=== PATIENT | male | born 1955 | race Caucasian/White ===

== ENCOUNTER 2024-04-15 05:58 | Day surgery (SDC) | payer OTHER, MEDICARE, SELFPAY ==
[2024-04-15] VITALS (13 sets, daily range): BP systolic 109–147; BP diastolic 62–86; BMI 34.9
--- NOTE | 2024-04-15 09:55 | ITS.CL.ABL ---
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
Ablation
Procedure Report:
Supra-Ventricular Tachycardia Ablation:
Mr. Dodson is a very pleasant�68 yr old gentleman with medical history significant for palpitations and was diagnosed with supra-ventricular tachycardia (SVT) with EKG showed short RP tachycardia. He presented today to the EP lab for
electrophysiology (EP) study of the heart and possible ablation of the SVT.
Date of Procedure:
04/15/2024
�
Indications: Supra-Ventricular Tachycardia (SVT)
�
Pre-Operative Diagnosis: Supra-Ventricular Tachycardia (SVT)
�
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
�
Procedure Performed: EP study and SVT ablation
�
Performing Physician:
Kavon Paris MD
��
Anesthesia:
See anesthesia records
�
Detailed Description of the Procedure:
Written informed consent was obtained from the patient after a full explanation of the risks and benefits of the procedure including the risks of sedation and anesthesia. The patient was brought to the electrophysiology laboratory in stable
condition in fasting state. Continuous electrocardiographic and hemodynamic monitoring was initiated.
The initial rhythm was normal sinus.
The procedure site was meticulously prepared with surgical scrub and allowed to dry with no pooling. Sterile draping was applied to cover the procedure site. The image intensifier was draped with sterile bag and positioned over the patient.
Sheath and Catheter Placement:
After infusion of local anesthetic, vascular access was obtained under ultrasound guidance and sheaths were placed over guide wire as detailed below.
�
Sheaths:
- � � � 6 Fr sheath in right femoral vein
- � � � 7 Fr sheath in right femoral vein
- � � � 8 Fr that was later upgraded to Agilis sheath in right femoral vein
�
Catheters:
- � � � 6Fr - Rk Quad-cath at RVa
- � � � 6Fr � QRD Quad - cath at HIS
- � � � Bard Decapolar catheter - at locations of CS
- � � � [employer] Lucas EZ steer non-irrigated 4 mm ablation catheter
�
�Following the sheaths placement, patient was given Heparin bolus and EP study was done.
Baseline intervals (milliseconds):
PP interval (baseline cycle length): 1191
P wave duration:126
DE interval:188
QRS duration: 111
QTc interval: 430
�
AH interval: 113
His duration: 18
HV interval: 47
Q onset to RVa: 0
��
Sinus Node Function:
HRA pacing showed adequate threshold. The sinus node functions are within acceptable normal range.
�
Atrioventricular Carlos A Function:
Atrial stimulation with incremental pacing intervals was performed from the high right atrium (HRA) and right ventricular apex (RVa) and antegrade and retrograde atrioventricular (AV) block cycle lengths were determined. The antegrade AV Wenckebach
was noted at 550 msec.
�
Programmed atrial stimulation was performed with drive train of 600 msec followed by a single atrial extra-stimulus and the AV carlos a and the atrial ERPs were determined. The AV carlos a ERP was <600/320 msec and the atrial ERP was 320msec.
There was normal decremental conduction noted through the AV node. The programmed stimuli showed a clear AH jump.
The fast pathway ERP was 600/350 ms and the slow pathway ERP was <600/320 ms.
Ventricular stimulation showed normal retrograde conduction via the AV node. The retrograde Wenckebach was 460msec.
�
Ventricular Function:
Single ventricular extrastimuli showed V conduction was normal with below 500 msec ventricular conduction. The ventricular electrical functions are within acceptable range.
Para-Hisian Pacing:
The HIS cahether were paced at high amplitude (20mA) and gradually amplitude decreased. The His capture was noted at high voltage and the VA conduction time was 110 msec. The lower voltage had RV capture and the VA time was 197 msec. This is deemed
carlos a response and no septal accessory pathway was noted.
�
Isuprel stimulation test:
With slow atrial conduction and delayed intervals noted, decision was made to use the Isuprel challenge. Isuprel infusion was initiated. The heart rate and blood pressure was monitored. Isuprel was gradually increased from 1 to 5 mcg/min. There was
adequate tachycardia response noted at 5 mcg/min dose and EP study and SVT induction was again attempted. Programmed atrial stimulation followed by atrial burst pacing around AV Wenckebach cycle length induced tachycardia. Isuprel was discontinued.
SVT Arrhythmia Induction:
The tachycardia was easily inducible with atrial spetal pacing at 350 msec.
Tachycardia:
The tachycardia was studies with a cycle length of 340 msec and easily inducible. The tachycardia was concentric and had short VA time. This was consistent with AVNRT.
The tachycardia was entrained from the ventricle and the proximal CS. The ventricle was out of the tachycardia cycle and attempt from the entrainment from CS maneuver terminated the tachycardia. The tachycardia was difficult to entrain as it
terminated with entrainment. It dissociated from the ventricle and the atrium with A and V pacing but was not entrained due to termination.
Decision was made to map the tachycardia to assess the circuit. The earliest tachycardia signal in the atrium was at the fast pathway again adding evidence to the AVNRT. ��
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
Electroanatomic 3D Mapping (EAM) and Ablation:
The HRA was removed and was upgraded to Agilis sheath for ablation catheter. EAM and radiofrequency ablation was performed using a non-irrigation, EZ steer 4 mm radiofrequency ablation catheter. 3D mapping was performed with Carto3 software. Cardiac
anatomy as established. His cloud was established. The triangle of Zhang was marked with ablation catheter. There was a narrow area between the anterior border of the CS and the tricuspid annulus.
A slow pathway AVNRT ablation was pursued. Radiofrequency ablation lesions were applied to the anatomic slow pathway area targeting spike and dome electrograms with > 1:7 A:V ratio just below the His cloud. There were multitude of Junctional beats
with 1:1 VA relationship noted. There was no non-conducted beat.
Post Ablation EP study:
The post ablation EP study showed normal AV conduction. The DE was 188msec; QRS was 112msec; AH was 118msec with HV of 45msec. There was no sign of AV block noted.
There was decremental conduction noted via the AV node. There was no jump present now after the ablation. There was no echo beats and despite aggressive measures there was no inducible tachycardia.
Isuprel was again started and uptitrated to 5 mcg and repeated the EP study. The easily inducing setting (burst pacing 350 ms from prox CS) was again attempted multiple times without any arrhythmia.
No tachycardia was inducible now.
Procedure End
Following the completion of the EP study, catheters were removed. The sheaths were removed and hemostasis achieved with Figure of 8 and manual compression.
Recommendations:
��������� Likely discharge home today.
��������� No change in home medications.
�
Estimated Blood loss:
<5 cc
�
Specimens Removed:
None.
�
Implants / Devices:
None
�
Urine output:
None
�
Packs / Drains/ Tubes:
None
�
Instrument / Sponge Count Correct:
Yes
�
Complications of the Procedure:
None
�
Condition of Patient at Time of Transfer:
Hemodynamically stable with no neurological or vascular compromise.
Summary:
Electrophysiology study with induction of atrioventricular carlos a re-entrant tachycardia (AVNRT) and successful modification of slow pathway.
== END 2024-04-15 14:30 | disposition home or self-care (01) ==
LOC: CATH 05:58
PROVIDERS: ATTENDING PHYSICIAN Internal Medicine Cardiovascular Disease; FAMILY PHYSICIAN Physician Assistant Medical; OTHER PHYSICIAN Internal Medicine Cardiovascular Disease
DX: I47.10 Supraventricular tachycardia, unspecified (principal); I10 Essential (primary) hypertension; K21.9 Gastro-esophageal reflux disease without esophagitis
CPT/HCPCS: C1732; C1894; C1730; C1766; 76937; 93005; 93623; 93653

== ENCOUNTER → 2024-06-27 14:01 | Outpatient (REF) | payer MEDICARE, SELFPAY | LOC: RAD 14:01 | PROVIDERS: ATTENDING PHYSICIAN Family Medicine; FAMILY PHYSICIAN Physician Assistant Medical | DX: R10.31 Right lower quadrant pain (principal); R19.4 Change in bowel habit | CPT/HCPCS: 74177; Q9967 ==

== ENCOUNTER → 2024-11-11 10:59 | Outpatient (REF) | payer MEDICARE, SELFPAY | LOC: RAD 10:59 | PROVIDERS: ATTENDING PHYSICIAN Family Medicine | DX: M25.511 Pain in right shoulder (principal); M25.552 Pain in left hip | CPT/HCPCS: 73030; 73502 ==

== ENCOUNTER → 2024-12-05 10:45 | Outpatient (REF) | payer MEDICARE, SELFPAY | LOC: RAD 10:45 | PROVIDERS: ATTENDING PHYSICIAN Nurse Practitioner Family; FAMILY PHYSICIAN Nurse Practitioner Family | DX: M25.432 Effusion, left wrist (principal); R07.81 Pleurodynia | CPT/HCPCS: 71101; 73110; 73130 ==

== ENCOUNTER → 2025-01-16 06:43 | Outpatient (REF) | payer MEDICARE, SELFPAY | LOC: PAVMRI 06:43 | PROVIDERS: ATTENDING PHYSICIAN Orthopaedic Surgery; FAMILY PHYSICIAN Family Medicine | DX: M25.532 Pain in left wrist (principal) | CPT/HCPCS: 73221 ==

== ENCOUNTER → 2025-06-20 06:17 | Outpatient (REF) | payer MEDICARE, SELFPAY | LOC: MRI 06:17 | PROVIDERS: ATTENDING PHYSICIAN Physician Assistant Surgical; FAMILY PHYSICIAN Family Medicine | DX: M25.511 Pain in right shoulder (principal) | CPT/HCPCS: 73221 ==

== ENCOUNTER → 2025-11-02 11:39 | Outpatient (REF) | payer SELFPAY | LOC: HWRAD 11:39 | PROVIDERS: ATTENDING PHYSICIAN Family Medicine | DX: E78.2 Mixed hyperlipidemia (principal); E66.01 Morbid (severe) obesity due to excess calories | CPT/HCPCS: 75571 ==